=== PATIENT | female | born 1985 | race Caucasian/White ===

== ENCOUNTER 2016-11-10 19:00 | Emergency (ER) | payer MEDICAID, OTHER ==
[2016-11-10 19:06] VITALS: TEMP 97.5
[2016-11-10 19:34] LABS: % IMMATURE GRANULYOCYTES 0.3 % (0.0-1.1); ABSOLUTE IMMATURE GRANULOCYTES 0.02 10^3/uL (0.00-0.10); ADD DIFF? NO; ADD MORPH? NO; ADD SCAN? NO; ATYPICAL LYMPHOCYTE FLAG 60 (0-99); FRAGMENT RBC FLAG 0 (0-99); HEMATOCRIT 40.9 % (38.0-47.0); HEMOGLOBIN 13.9 g/dL (12.6-16.3); LEFT SHIFT FLG 0 (0-99); LIPEMIA HEMOLYSIS FLAG 90 (0-99); MEAN CELL VOLUME 91.3 fL (81.5-99.8); MEAN PLATELET VOLUME 9.9 fL (8.7-11.7); PLATELET CLUMPS FLAG 0 (0-99); PLATELET COUNT 269 10^3/uL (150-400); RED BLOOD CELL COUNT 4.48 10^6/uL (4.18-5.33); RED CELL DISTRIBUTION WIDTH 12.5 % (11.5-15.2)
[2016-11-10 19:37] LABS: COLOR COLORLESS; LEUKOCYTE ESTERASE,URINE NEGATIVE (NEGATIVE); NITRITE,URINE NEGATIVE (NEGATIVE)
--- NOTE | 2016-11-10 19:39 | EDPHY ---
H & P Stated Complaint: ABDOMINAL PAIN Time Seen by Provider: 11/10/16 19:05 - Personal History LMP (Females 10-55): 22-28 Days Ago Current Tetanus/Diphtheria Vaccine: No - Medical/Surgical History Hx Asthma: No Hx Chronic Respiratory Disease: No Hx Diabetes: No Hx Cardiac Disease: No Hx Renal Disease: No Hx Cirrhosis: No Hx Alcoholism: No Hx HIV/AIDS: No Hx Splenectomy or Spleen Trauma: No Other PMH: r sided paresthesias, chronic fatigue sydrome, endometriosis, kidney stones. surg-lap for endometriosis, knee surgery, eye surgery age 6 - Social History Smoking Status: Never smoked Constitutional: Initial Vital Signs Temperature (C) 36.4 C 11/10/16 19:02 Heart Rate 90 11/10/16 19:02 Respiratory Rate 18 11/10/16 19:02 Blood Pressure 134/94 H 11/10/16 19:02 O2 Sat (%) 94 11/10/16 19:02 O2 Delivery Mode Room Air Allergies/Adverse Reactions: Tetanus Vaccines and Toxoid [Tetanus] Allergy (Intermediate, Verified 03/12/16 14:01) Home Medications: Medication Instructions Recorded Ondansetron Odt [Zofran Odt 4 mg 4 mg PO Q4 PRN #10 tab 11/10/16 (RX)] oxyCODONE IR [Oxycodone Ir (*)] 5 - 10 mg PO Q6 PRN #20 tab 11/10/16 Medical Decision Making - Diagnostics Imaging: I viewed and interpreted images myself ED Course/Re-evaluation: CHIEF COMPLAINT: Abdominal pain. HISTORY OF PRESENT ILLNESS: This patient is a 31 year old female arriving with her father complaining of intermittent midepigastric pain over the last 2-3 weeks onset about 1 hour after eating. She reports she has also experienced diarrhea after each oral intake for the same period of time. Yesterday evening, she woke up with severe epigastric pain radiating to her back, and had several episodes of vomiting. She endorses associated throbbing pain in her back, opposite her right upper quadrant. She states she has history of gallbladder dyskinesia at age 13, and was discovered to have very low injection fraction at that time. She states she controlled this with diet, rather than cholecystectomy, and has not had further issues prior to recent symptom development. She denies fever, chills, chest pain , shortness of breath, or other associated symptoms. REVIEW OF SYSTEMS: A 10 point review of systems was performed and is negative with the exception of the elements mentioned in the history of present illness. PHYSICAL EXAM: General Appearance: Alert, well hydrated, appropriate, and non-toxic appearing. Head: Atraumatic without scalp tenderness or obvious injury Eyes: Pupils equal, round, reactive to light and accommodation, EOMI, no trauma , no injection. Ears: Clear bilaterally, no perforation, normal landmarks Nose: Atraumatic, no rhinorrhea, clear. Throat: Mucus membranes moist. Neck: Supple, 2+ carotid upstroke, non-tender, no lymphadenopathy. Respiratory: No retractions, no distress, no wheezes, and no accessory muscle use. Lungs are clear to auscultation bilaterally. Cardiovascular: Regular rate and rhythm. Good capillary refill all extremities. Gastrointestinal: Midepigastric tenderness. Right upper quadrant tenderness. Positive Funk's sign. Abdomen is soft, non-distended, no masses, no rebound. Musculoskeletal: Normal active ROM of all extremities, atraumatic. Neurological: Alert, appropriate, and interactive. Nonfocal neuro exam. Skin: No rashes, good turgor, no nodules on palpation. PAST MEDICAL/SURGICAL HISTORY: Gallbladder dyskinesia, kidney stones. 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 DIFFERENTIAL DIAGNOSIS: The differential diagnosis for the patient's abdominal pain included but was not limited to cholecystitis, appendicitis, gastroenteritis, mesenteric adenitis , ovarian cyst, pelvic inflammatory disease, ovarian torsion, urinary tract infection, and ectopic . MEDICAL DECISION MAKING: This patient is a 31 year old female presenting with three week history of midepigastric pain and diarrhea following oral intake. Physical exam reveals right upper quadrant tenderness, positive Funk's sign. Plan for labs including CBC, BMP, liver, lipase, UA. Plan for ultrasound of abdomen, attention gallbladder. US negative for acute processes. Labs unremarkable. Discussed possibility for CT to further assess. The patient has had several recent abdominal CTs to evaluate kidney stone. Discussed risks and benefits, the patient and I agree to postpone in this case due to radiation exposure. Given negative labs, imaging, suspect gastroenteritis and mesenteric adenitis. Patient has recently travelled out of the country, so will send her home with a stool sample kit for further evaluation of infectious or parasitic processes. Plan to discharge home in good condition with prescriptions for Percocet and Zofran for symptom management. She will follow up tomorrow and continue to follow up next week with her primary care provider. The patient is comfortable with this plan. - Data Points Laboratory Results: Laboratory Results 11/10/16 19:10 11/10/16 19:10 11/10/16 11/10/16 11/10/16 19:10 19:10 19:10 WBC 7.67 10^3/uL 10^3/uL (3.80-9.50) RBC 4.48 10^6/uL 10^6/uL (4.18-5.33) Hgb 13.9 g/dL g/dL (12.6-16.3) Hct 40.9 % % (38.0-47.0) MCV 91.3 fL fL (81.5-99.8) MCH 31.0 pg pg (27.9-34.1) MCHC 34.0 g/dL g/dL (32.4-36.7) RDW 12.5 % % (11.5-15.2) Plt Count 269 10^3/uL 10^3/uL (150-400) MPV 9.9 fL fL (8.7-11.7) Neut % (Auto) 49.1 % % (39.3-74.2) Lymph % (Auto) 37.3 % % (15.0-45.0) Sunflower % (Auto) 9.6 % % (4.5-13.0) Eos % (Auto) 2.9 % % (0.6-7.6) Baso % (Auto) 0.8 % % (0.3-1.7) Nucleat RBC Rel Count 0.0 % % (0.0-0.2) Absolute Neuts (auto) 3.77 10^3/uL 10^3/uL (1.70-6.50) Absolute Lymphs (auto) 2.86 10^3/uL 10^3/uL (1.00-3.00) Absolute Monos (auto) 0.74 10^3/uL 10^3/uL (0.30-0.80) Absolute Eos (auto) 0.22 10^3/uL 10^3/uL (0.03-0.40) Absolute Basos (auto) 0.06 10^3/uL 10^3/uL (0.02-0.10) Absolute Nucleated RBC 0.00 10^3/uL 10^3/uL (0-0.01) Immature Gran % 0.3 % % (0.0-1.1) Immature Gran # 0.02 10^3/uL 10^3/uL (0.00-0.10) Sodium 144 mEq/L mEq/L (134-144) Potassium 3.7 mEq/L mEq/L (3.5-5.2) Chloride 108 mEq/L mEq/L (97-110) Carbon Dioxide 21 mEq/l L mEq/l (22-31) Anion Gap 15 mEq/L mEq/L (8-16) BUN 11 mg/dL mg/dL (7-23) Creatinine 0.7 mg/dL mg/dL (0.6-1.0) Estimated GFR > 60 Glucose 106 mg/dL H mg/dL (70-100) Calcium 10.6 mg/dL H mg/dL (8.5-10.4) Total Bilirubin 0.9 mg/dL mg/dL (0.1-1.4) Conjugated Bilirubin 0.3 mg/dL mg/dL (0.0-0.5) Unconjugated Bilirubin 0.6 mg/dL mg/dL (0.0-1.1) AST 24 IU/L IU/L (14-46) ALT 29 IU/L IU/L (9-52) Alkaline Phosphatase 46 IU/L IU/L (38-126) Total Protein 8.3 g/dL H g/dL (6.3-8.2) Albumin 4.8 g/dL g/dL (3.5-5.0) Lipase 197.0 IU/L IU/L (23-300) Beta HCG, Qual NEGATIVE Urine Color Urine Appearance Urine pH Ur Specific [place] Urine Protein Urine Ketones Urine Blood Urine Nitrate Urine Bilirubin Urine Urobilinogen Ur Leukocyte Esterase Urine RBC Urine WBC Ur Epithelial Cells Urine Glucose Urine Test 11/10/16 11/10/16 19:10 19:10 WBC RBC Hgb Hct MCV MCH MCHC RDW Plt Count MPV Neut % (Auto) Lymph % (Auto) [place] % (Auto) Eos % (Auto) Baso % (Auto) Nucleat RBC Rel Count Absolute Neuts (auto) Absolute Lymphs (auto) Absolute Monos (auto) Absolute Eos (auto) Absolute Basos (auto) Absolute Nucleated RBC Immature Gran % Immature Gran # Sodium Potassium Chloride Carbon Dioxide Anion Gap BUN Creatinine Estimated GFR Glucose Calcium Total Bilirubin Conjugated Bilirubin Unconjugated Bilirubin AST ALT Alkaline Phosphatase Total Protein Albumin Lipase Beta HCG, Qual Urine Color COLORLESS Urine Appearance CLEAR Urine pH 7.0 (5.0-7.5) Ur Specific [place] 1.001 L (1.002-1.030) Urine Protein NEGATIVE (NEGATIVE) Urine Ketones NEGATIVE (NEGATIVE) Urine Blood 1+ H (NEGATIVE) Urine Nitrate NEGATIVE (NEGATIVE) Urine Bilirubin NEGATIVE (NEGATIVE) Urine Urobilinogen NEGATIVE EU EU (0.2-1.0) Ur Leukocyte Esterase NEGATIVE (NEGATIVE) Urine RBC NONE SEEN /hpf /hpf (0-3) Urine WBC 1-3 /hpf /hpf (0-3) Ur Epithelial Cells TRACE /lpf /lpf (NONE-1+) Urine Glucose NEGATIVE (NEGATIVE) Urine Test NEGATIVE Departure - Departure Disposition: Home, Routine, Self-Care Clinical Impression: Acute gastroenteritis, Mesenteric adenitis Condition: Good Instructions: Gastroenteritis (ED), Mesenteric Adenitis (ED) Additional Instructions: 1. Take your Percocet as prescribed as needed for pain, and Zofran as needed for nausea. 2. Call me tomorrow with an update, and let me know when you drop off your stool sample so I can check for results. 3. Follow up with your primary care physician for continued management of symptoms. 4. Return to the emergency department for worsening abdominal pain, intractable vomiting, fever, chills, or other associated symptoms. Referrals: Roseline Barajas [Primary Care Provider] - As per Instructions Prescriptions: Ondansetron Odt [Zofran Odt 4 mg (RX)] 4 mg PO Q4 PRN #10 tab PRN Reason: Nausea/Vomiting, Use 1st oxyCODONE IR [Oxycodone Ir (*)] 5 - 10 mg PO Q6 PRN #20 tab PRN Reason: Pain, Severe Report Scribed for: Leighton Burris Report Scribed by: Alexandria Mosqueda Date of Report: 11/10/16 Time of Report: 19:39
[2016-11-10 19:46] LABS: ALANINE AMINOTRANSFERASE 29 IU/L (9-52); ALBUMIN 4.8 g/dL (3.5-5.0); ALKALINE PHOSPHATASE 46 IU/L (38-126); ANION GAP 15 mEq/L (8-16); ASPARTATE AMINOTRANSFERASE 24 IU/L (14-46); BILIRUBIN,TOTAL 0.9 mg/dL (0.1-1.4); BILIRUBIN-CONJUGATED 0.3 mg/dL (0.0-0.5); BILIRUBIN-UNCONJUGATED 0.6 mg/dL (0.0-1.1); CALCIUM 10.6 mg/dL (8.5-10.4); CARBON DIOXIDE 21 mEq/l (22-31); CHLORIDE 108 mEq/L (97-110); CREATININE 0.7 mg/dL (0.6-1.0); GLOMERULAR FILTRATION RATE > 60; GLUCOSE 106 mg/dL (70-100); POTASSIUM 3.7 mEq/L (3.5-5.2); SODIUM 144 mEq/L (134-144); TOTAL PROTEIN 8.3 g/dL (6.3-8.2)
[2016-11-10 19:47] LABS: RBC,URINE NONE SEEN /hpf (0-3)
[2016-11-10 20:30] VITALS: BP 125/81; PULSE 79; RESP 16; O2SAT 98
[2016-11-10] MEDS ORDERED: ONDANSETRON 4MG PREPACK#2 BTL TAKEHOME ONE (20:34)
[2016-11-10] MEDS ORDERED: OXYCODONE/APAP 5/325MG PREPACK#4 BTL TAKEHOME ONE (20:34)
[2016-11-11 17:32] LABS: OCCULT BLOOD FECES NEGATIVE (NEGATIVE)
[2016-11-11 17:52] LABS: O/P DIRECT NONE SEEN (NONE SEEN)
[2016-11-11 18:30] LABS: O/P DESCRIPTION FORMED BROWN STOOL
[2016-11-14 12:48] LABS: O/P CONCENTRATION NONE SEEN (NONE SEEN)
[2016-11-14 15:50] LABS: O/P TRICHROME NONE SEEN (NONE SEEN)
== END 2016-11-10 20:49 | disposition home or self-care (01) ==
DX: K52.9 Noninfective gastroenteritis and colitis, unspecified (principal); I88.0 Nonspecific mesenteric lymphadenitis

== ENCOUNTER 2016-11-14 16:51 | Emergency (ER) | payer MEDICAID ==
[2016-11-14 16:56] VITALS: TEMP 98.4
[2016-11-14 17:23] LABS: % IMMATURE GRANULYOCYTES 0.2 % (0.0-1.1); ABSOLUTE IMMATURE GRANULOCYTES 0.02 10^3/uL (0.00-0.10); ADD DIFF? NO; ADD MORPH? NO; ADD SCAN? NO; ATYPICAL LYMPHOCYTE FLAG 50 (0-99); FRAGMENT RBC FLAG 0 (0-99); HEMOGLOBIN 13.4 g/dL (12.6-16.3); LEFT SHIFT FLG 0 (0-99); LIPEMIA HEMOLYSIS FLAG 80 (0-99); MEAN CELL HEMOGLOBIN 31.2 pg (27.9-34.1); MEAN CELL HEMOGLOBIN CONCENTR. 33.5 g/dL (32.4-36.7); MEAN CELL VOLUME 93.2 fL (81.5-99.8); PLATELET CLUMPS FLAG 0 (0-99); PLATELET COUNT 264 10^3/uL (150-400); RED BLOOD CELL COUNT 4.29 10^6/uL (4.18-5.33); RED CELL DISTRIBUTION WIDTH 12.3 % (11.5-15.2)
[2016-11-14 17:41] LABS: ANION GAP 17 mEq/L (8-16); CARBON DIOXIDE 21 mEq/l (22-31); CHLORIDE 106 mEq/L (97-110); CREATININE 0.7 mg/dL (0.6-1.0); GLOMERULAR FILTRATION RATE > 60; GLUCOSE 88 mg/dL (70-100); POTASSIUM 3.7 mEq/L (3.5-5.2); SODIUM 144 mEq/L (134-144)
--- NOTE | 2016-11-14 17:43 | EDPHY ---
HPI/HX/ROS/PE/MDM Narrative: CHIEF COMPLAINT: Abdominal pain, back pain, chills HPI: The patient is a 31 y/o female complaining of persisting waxing and waning abdominal and back pain with chills for the last 2.5 months. She has a history of kidney stones and remote history of gallbladder dyskinesia as a child and possible endometriosis in her early 20s. She traveled to [facility] at the end of August into September, about 2.5 months ago, and 6 days into her travel she developed "the worst fever of my life" and associated abdominal pain and diarrhea. Those symptoms resolved completely without intervention after a few days. Since her return to [place] in September, she has had waxing and waning abdominal pain and diarrhea. For the last 3 weeks, she had loose bowel movements after each meal until Saturday, 5 days ago when she took one dose of Percocet. She has not had a bowel movement since then. She was evaluated in the ED for her abdominal pain on 11/10/16 and had a RUQ and right kidney ultrasound that showed mesenteric adenitis. Her labs and stool cultures were unremarkable. She started a course of azithromycin for possible relapsing Typhoid on Saturday. She has since developed pain in her left thoracic back above her flank. She describes this pain as dull, aching, throbbing, and worsening throughout the day. Her pain is dissimilar to prior kidney stones. She continues to have chills, wakes up diaphoretic, and has general malaise. REVIEW OF SYSTEMS: Aside from elements discussed in the HPI, a comprehensive 10-point review of systems was reviewed and is negative. 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 Lives in [place]. 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 Recently traveled to [facility] and [facility]. PHYSICAL EXAM: General:Patient is alert, in no acute distress. ENT:Eyes are normal to inspection. ENT inspection normal. Neck: Normal inspection. Full range of motion. Respiratory:No respiratory distress. Breath sounds normal bilaterally. Cardiovascular: Regular rate and rhythm. Strong peripheral pulses. Normal cap refill. Abdomen:The abdomen has mild diffuse tenderness worse in the RUQ. There are no peritoneal signs. There are normal bowel sounds. Back: Normal to inspection. No tenderness to palpation. Skin: Normal color. No rash. Warm and dry. Extremities: Normal appearance. Full range of motion. Neuro: Oriented x3. Normal motor function. Normal sensory function. ED Course: This is a 31 y/o female who presents with a 2.5 month-history of waxing and waning RUQ abdominal pain and chills since traveling to [place] and new onset left thoracic back pain and constipation this week. Recent abdominal US showed mesenteric adenitis. She started azithromycin 2 days ago for possible relapsing Typhoid. She is well-appearing and afebrile here. She has mild diffuse abdominal tenderness on exam. Plan for IV, labs, and abdominal CT. We discussed imaging options at length and mutually decided to pursue a CT. She declined pain or nausea medication. 1838: Reassessed patient and discussed findings. Labs are completely unremarkable. CT shows constipation and enteritis. Recommended ID follow up. Standard abdominal pain instructions and return precautions given. She is comfortable with this plan. 184: Consulted with Dr. King, ID. She will see patient in her clinic tomorrow afternoon. - Data Points Imaging Results: Imaging Impressions Abdomen CT 11/14/16 17:32 Impression: 1. Query enteritis with an element of constipation suspected. 2. See above report for additional findings. Results called and discussed with Derick Yan MD on 11/14/2016 at 18:36 Imaging: Discussed imaging studies w/ call center agent Radiologist, I viewed and interpreted images myself Laboratory Results: Laboratory Results 11/14/16 17:05 11/14/16 17:05 11/14/16 11/14/16 11/14/16 17:05 17:05 17:05 WBC 8.03 10^3/uL 10^3/uL (3.80-9.50) RBC 4.29 10^6/uL 10^6/uL (4.18-5.33) Hgb 13.4 g/dL g/dL (12.6-16.3) Hct 40.0 % % (38.0-47.0) MCV 93.2 fL fL (81.5-99.8) MCH 31.2 pg pg (27.9-34.1) MCHC 33.5 g/dL g/dL (32.4-36.7) RDW 12.3 % % (11.5-15.2) Plt Count 264 10^3/uL 10^3/uL (150-400) MPV 10.0 fL fL (8.7-11.7) Neut % (Auto) 52.7 % % (39.3-74.2) Lymph % (Auto) 36.0 % % (15.0-45.0) [place] % (Auto) 6.6 % % (4.5-13.0) Eos % (Auto) 3.6 % % (0.6-7.6) Baso % (Auto) 0.9 % % (0.3-1.7) Nucleat RBC Rel Count 0.0 % % (0.0-0.2) Absolute Neuts (auto) 4.23 10^3/uL 10^3/uL (1.70-6.50) Absolute Lymphs (auto) 2.89 10^3/uL 10^3/uL (1.00-3.00) Absolute Monos (auto) 0.53 10^3/uL 10^3/uL (0.30-0.80) Absolute Eos (auto) 0.29 10^3/uL 10^3/uL (0.03-0.40) Absolute Basos (auto) 0.07 10^3/uL 10^3/uL (0.02-0.10) Absolute Nucleated RBC 0.00 10^3/uL 10^3/uL (0-0.01) Immature Gran % 0.2 % % (0.0-1.1) Immature Gran # 0.02 10^3/uL 10^3/uL (0.00-0.10) Sodium 144 mEq/L mEq/L (134-144) Potassium 3.7 mEq/L mEq/L (3.5-5.2) Chloride 106 mEq/L mEq/L (97-110) Carbon Dioxide 21 mEq/l L mEq/l (22-31) Anion Gap 17 mEq/L H mEq/L (8-16) BUN 13 mg/dL mg/dL (7-23) Creatinine 0.7 mg/dL mg/dL (0.6-1.0) Estimated GFR > 60 Glucose 88 mg/dL mg/dL (70-100) Calcium 10.0 mg/dL mg/dL (8.5-10.4) Total Bilirubin 0.7 mg/dL mg/dL (0.1-1.4) Conjugated Bilirubin 0.3 mg/dL mg/dL (0.0-0.5) Unconjugated Bilirubin 0.4 mg/dL mg/dL (0.0-1.1) AST 25 IU/L IU/L (14-46) ALT 29 IU/L IU/L (9-52) Alkaline Phosphatase 46 IU/L IU/L (38-126) Total Protein 8.4 g/dL H g/dL (6.3-8.2) Albumin 5.0 g/dL g/dL (3.5-5.0) Lipase 242.0 IU/L IU/L (23-300) CMV IgG Ab Pending CMV IgM Ab Pending EBV Capsid Ag IgG Ab Pending EBV Capsid Ag IgM Ab Pending EBV Nuclear Antigen Ab Pending EBV Interpretation Pending General Time Seen by Provider: 11/14/16 17:04 Initial Vital Signs: Initial Vital Signs Temperature (C) 36.9 C 11/14/16 16:53 Heart Rate 80 11/14/16 16:53 Respiratory Rate 17 11/14/16 16:53 Blood Pressure 113/72 11/14/16 16:53 O2 Sat (%) 99 11/14/16 16:53 O2 Delivery Mode Room Air Allergies/Adverse Reactions: Tetanus Vaccines and Toxoid [Tetanus] Allergy (Intermediate, Verified 11/14/16 16:52) Home Medications: Medication Instructions Recorded Ondansetron Odt [Zofran Odt 4 mg 4 mg PO Q4 PRN #10 tab 11/10/16 (RX)] oxyCODONE IR [Oxycodone Ir (*)] 5 - 10 mg PO Q6 PRN #20 tab 11/10/16 Departure - Departure Disposition: Home, Routine, Self-Care Clinical Impression: Enteritis Abdominal pain Qualifiers: Abdominal location: right upper quadrant Qualified Code(s): R10.11 - Right upper quadrant pain Condition: Good Instructions: Abdominal Pain (ED), Flank Pain (ED) Additional Instructions: Complete your course of azithromycin. Follow up with Dr. King at her office tomorrow at 3:45pm. Return to the ED for worsening of condition. Referrals: Roseline Barajas [Primary Care Provider] - As per Instructions Jackeline King MD [Medical Doctor] - As per Instructions Demarco Velasquez MD [[facility] Primary Care Provider] - As per Instructions Report Scribed for: Derick Yan Report Scribed by: Kamille Smith Date of Report: 11/14/16 Time of Report: 17:18 Physician Review and Approval Statement: Portions of this note were transcribed by an ED scribe. I personally performed the history, physical exam, and medical decision making; and confirm the accuracy of the information in the transcribed note.
[2016-11-14] MEDS ORDERED: IOPAMIDOL (ISOVUE-300) 100 ML BTL ONE (17:45)
[2016-11-14 17:51] LABS: ALANINE AMINOTRANSFERASE 29 IU/L (9-52); ALKALINE PHOSPHATASE 46 IU/L (38-126); ASPARTATE AMINOTRANSFERASE 25 IU/L (14-46); BILIRUBIN,TOTAL 0.7 mg/dL (0.1-1.4); BILIRUBIN-CONJUGATED 0.3 mg/dL (0.0-0.5); BILIRUBIN-UNCONJUGATED 0.4 mg/dL (0.0-1.1); TOTAL PROTEIN 8.4 g/dL (6.3-8.2)
[2016-11-14 19:00] VITALS: BP 125/80; PULSE 77; RESP 18; O2SAT 96
[2016-11-15 21:42] LABS: CREATININE 0.7 mg/dL (0.6-1.0)
[2016-11-15 22:09] LABS: PTH INTACT NO MINERALS 30.5 pg/ml (10.8-79.4)
[2016-11-16 14:32] LABS: ANTI EBNA Positive (Negative); ANTI VCA/IgG Positive (Negative); ANTI VCA/IgM Negative (Negative)
[2016-11-18 20:49] LABS: MALARIA PCR RESULT Negative (Negative)
== END 2016-11-14 19:00 | disposition home or self-care (01) ==
DX: K52.9 Noninfective gastroenteritis and colitis, unspecified (principal)
CPT/HCPCS: 84481-90; 86644-90; 86645-90; 86664-90; 86665-90; 87798-90; Q9967